=== PATIENT | male | born 2000 | race Asian ===

== ENCOUNTER 2019-10-23 12:24 | Emergency (ER) | payer OTHER ==
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
[2019-10-23 13:07] LABS: ABS Lymphocytes 1.4 10^3/ul (1.0-4.8); ABS Monocytes 0.4 10^3/ul (0-0.8); ABS Neutrophils 3.8 10^3/ul (1.5-7.7); Eosinophil % 0.5 %; Hematocrit 41 % (42-52); Hemoglobin 14.1 g/dL (14.0-18.0); Lymphocyte % 24.7 %; Mean Corpuscular HGB Conc 35 g/dL (31-36); Mean Corpuscular Hemoglobin 33 pg (27-31); Mean Corpuscular Volume 93 fL (80-94); Mean Platelet Volume 7.5 fL (7.4-10.4); Nucleated Red Blood Cells % 0.1; Platelet Count 258 10^3/uL (150-450); Red Blood Count 4.34 10^6 /uL (4.18-5.48); Red Cell Distribution Width 13 % (10-15); White Blood Count 5.7 10^3/uL (3.5-10.8)
[2019-10-23 13:20] LABS: Urine Appearance Clear; Urine Bilirubin Negative (Negative); Urine Blood Negative (Negative); Urine Color Straw; Urine Glucose Negative (Negative); Urine Ketones Negative (Negative); Urine Nitrite Negative (Negative); Urine Protein Negative (Negative); Urine Specific Gravity 1.005 (1.010-1.030); Urine Urobilinogen Negative (Negative)
[2019-10-23 13:22] LABS: ALT 29 U/L (7-52); AST 22 U/L (13-39); Albumin 4.6 g/dL (3.2-5.2); Albumin/Globulin Ratio 1.8 (1-3); Alkaline Phosphatase 69 U/L (34-104); Anion Gap 6 mmol/L (2-11); Blood Urea Nitrogen 15 mg/dL (6-24); CO2 Carbon Dioxide 30 mmol/L (22-32); Calcium 9.6 mg/dL (8.6-10.3); Chloride 104 mmol/L (101-111); EGFR African American 160.7 (>60); EGFR Non-African American 132.8 (>60); Globulin 2.6 g/dL (2-4); Glucose 85 mg/dL (70-100); Potassium 3.8 mmol/L (3.5-5.0); Sodium 140 mmol/L (135-145); Total Protein 7.2 g/dL (6.4-8.9)
[2019-10-23 13:26] LABS: Urine Benzodiazepine Screen None Detected (None Detect); Urine Opiates Screen None Detected (None Detect)
[2019-10-23 14:20] LABS: Acetaminophen < 15 mcg/mL; Alcohol < 10 mg/dL (<10); Salicylate < 2.50 mg/dL (<30)
[2019-10-23 14:34] LABS: TSH (Thyroid Stimulating Horm) 2.47 mcIU/mL (0.34-5.60)
[2019-10-23 17:27] VITALS: BP 124/72
== END 2019-10-23 17:26 | disposition home or self-care (01) ==
LOC: ED 12:24
DX: F42.9 Obsessive-compulsive disorder, unspecified (principal); F84.0 Autistic disorder; F22 Delusional disorders
CPT/HCPCS: 36415; 80053; 80307; 80320; 80329; 81003; 84443; 85025; 99285; G0480

== ENCOUNTER 2019-11-13 10:54 | Emergency (ER) | payer OTHER ==
--- NOTE | 2019-11-13 11:41 | UC ---
UC General HPI - HPI Summary HPI Summary: 19 yo wei presents accompanied by mom, c/o last couple days penile itching. Unsure if dysuria. No hematuria. No fever / chills. No GI upset. Has an appt with a new PCP end of this month, no current pcp. Reports several other issues, including itchy feet, feels like at night he has had bug bites on his feet. Some general body discomfort reported over a long time, but not acute. No fever / chills. - History of Current Complaint Stated Complaint: PERSONAL Time Seen by Provider: 11/13/19 11:38 Hx Obtained From: Patient, Family/Foreign Student Adviser Teacher - Allergy/Home Medications Allergies/Adverse Reactions: Allergies Allergy/AdvReac Type Severity Reaction Status Date / Time No Known Allergies Allergy Verified 11/13/19 12:20 PMH/Surg Hx/FS Hx/Imm Hx Previously Healthy: Yes - followed for MH issues - Family History Known Family History: Negative: Cardiac Disease, Hypertension, Diabetes - Social History Alcohol Use: None Substance Use Type: None Smoking Status (MU): Never Smoked Tobacco Review of Systems All Other Systems Reviewed And Are Negative: Yes Constitutional: Positive: Negative Skin: Positive: Negative Eyes: Positive: Negative ENT: Positive: Negative Respiratory: Positive: Negative Cardiovascular: Positive: Negative Gastrointestinal: Positive: Negative Genitourinary: Positive: Other - see hpi Motor: Positive: Negative Neurovascular: Positive: Negative Musculoskeletal: Positive: Negative Neurological: Positive: Negative Psychological: Positive: Negative Is Patient Immunocompromised?: No Physical Exam Triage Information Reviewed: Yes Appearance: Well-Nourished - sitting up, conversing easily, nad Vital Signs Reviewed: Yes Eye Exam: Normal - nad ENT Exam: Normal - mmm nad Neck exam: Normal Neck: Positive: Supple Respiratory Exam: Normal - RR normal, no dyspnea, no tachypnea no distress Cardiovascular Exam: Normal Cardiovascular: Positive: Brisk Capillary Refill Abdominal Exam: Normal - no cvat Abdomen Description: Positive: Nontender Musculoskeletal Exam: Normal - nad, although + subj reports some local upper back discomfort, reproduce by pressure between spine and scapula Neurological Exam: Normal - grossly nad Psychological: Positive: Normal Response To Family - no acute isssues per mom in accompaniment Skin Exam: Other - nondiaphoretic Distal penis excoriated, a little dry flaky skin, mild red. No purulence. Uncircumcised. Not constricted. No adenopathy. No testicular pain / swelling / tenderness. 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 Feet warm, not swollen. Course/Dx - Course Course Of Treatment: Pt has several questions, about primary care issues. He has an upcoming appt with PCP. Meanwhile, questions as posed answered to the best of my ability. Urine dip nad. Cx sent. Will start topical antifungal. D/w pt and mom. Should seek medical attention for worse or new issues. Will start otc hydrocortisone as needed to feet, avoid getting hydrocortisone on genitalia. Other - as Mr. Regan was being brought into the exam room by RN, RN noted that he walked over to the hospital computer and tried to look at it - which fortunatly at that time did not have open patient information. He was stopped immediately by RN and mom, with pt. I reviewed pmh, and note that this occurance happened also last month. Today's difference however, being that he did not have an outburst or otherwise. No c/o si/hi reported. He remained calm, cooperative, and otherwise appropriately respectful throughout his ccc encounter. - Diagnoses Provider Diagnosis: Fungal dermatitis, Bug bite Discharge ED - Discharge Plan Condition: Stable Disposition: HOME Prescriptions: Econazole 1% CREAM (NF) [Econazole 1 % CREAM (NF)] 1 applic TOPICAL BID 14 Days #1 tube Patient Education Materials: Insect Bite or Sting (ED), Skin Yeast Infection ( ED) Referrals: Krish Loja MD [Primary Care Provider] - Additional Instructions: Follow up with your primary care physician as scheduled this month. Urine culture has been sent. You will be notified if you need an antibiotic. Please seek medical attention for worse or new problems. Hydrate. You may use thin layer over the counter hydrocortisone (0.5% or 1%) up to twice daily as needed for itchy foot bug bites. Max 7 days. - Billing Disposition and Condition Condition: STABLE Disposition: Home
[2019-11-13 12:52] VITALS: BP 135/74
== END 2019-11-13 12:40 | disposition home or self-care (01) ==
LOC: UCEAST 10:54
DX: S90.869A Insect bite (nonvenomous), unspecified foot, initial encounter (principal); B36.9 Superficial mycosis, unspecified; W57.XXXA Bitten or stung by nonvenomous insect and other nonvenomous arthropods, initial encounter; Y92.9 Unspecified place or not applicable
CPT/HCPCS: 81003; 87086; 99202; G0463

== ENCOUNTER 2019-12-01 16:12 | Emergency (ER) | payer OTHER ==
--- NOTE | 2019-12-01 16:24 | UC ---
Ear Complaint HPI - HPI Summary HPI Summary: 19 yo male presents, accompanied by mother, with LEFT ear pain. Mom tells me that over the last 2-3 days pt has been complaining of intermittent left ear pain and itching. Pt does pick his ears often and uses q-tips often. Some decreased hearing from that ear. Denies fever, sinus symptoms, sore throat, cough, trauma. - History of Current Complaint Chief Complaint: UCEar Stated Complaint: EAR PAIN Time Seen by Provider: 12/01/19 16:23 Hx Obtained From: Patient, Family/School Inspector Onset/Duration: Sudden Onset Severity Initially: Moderate Severity Currently: Moderate Pain Intensity: 10 Pain Scale Used: 0-10 Numeric - Allergies/Home Medications Allergies/Adverse Reactions: Allergies Allergy/AdvReac Type Severity Reaction Status Date / Time No Known Allergies Allergy Verified 12/01/19 16:23 Home Medications: Home Medications Clotrimazole 1% CREAM* [Clotrimazole 1%*] 1 applic TOPICAL BID #1 tube 12/01/19 [Rx] PMH/Surg Hx/FS Hx/Imm Hx - Additional Past Medical History Additional PMH: Defiant behavior - Surgical History Surgical History: None - Family History Known Family History: Negative: Cardiac Disease, Hypertension, Diabetes - Social History Lives: With Family Alcohol Use: None Substance Use Type: None Smoking Status (MU): Never Smoked Tobacco Review of Systems All Other Systems Reviewed And Are Negative: No Constitutional: Positive: Negative Skin: Positive: Negative Eyes: Positive: Negative ENT: Positive: Ear Ache Respiratory: Positive: Negative Cardiovascular: Positive: Negative Gastrointestinal: Positive: Negative Physical Exam - Summary Physical Exam Summary: GENERAL: NAD. WDWN. No pain distress. SKIN: No rashes, sores, lesions, or open wounds. HEENT: Head: AT/NC Eyes: EOM intact. Conjunctiva clear without inflammation or discharge. Ears: Hearing grossly normal. LEFT TM occluded by brown waxy cerumen. S/p disimpaction TMs intact, no bulging, erythema, or edema. Nose: Nasal mucosa pink and moist. NTTP maxillary and frontal sinus. Throat: Posterior oropharynx without exudates, erythema, or tonsillar enlargement. Uvula midline. NECK: Supple. Nontender. No lymphadenopathy. CHEST: CTAB. No r/r/w. No accessory muscle use. Breathing comfortably and in no distress. CV: RRR. Pulses intact. Cap refill <2seconds NEURO: Alert. PSYCH: Age appropriate behavior. Triage Information Reviewed: Yes Vital Signs: Initial Vital Signs Temp 98.1 F 12/01/19 16:18 Pulse 91 12/01/19 16:18 Resp 16 12/01/19 16:18 Pulse Ox 100 12/01/19 16:18 Vital Signs Reviewed: Yes Ear Complaint Course/Dx - Course Course Of Treatment: Ceurmen impaction on left -- successful irrigation by nursing and pt reports feeling much better. Mom tells me that about 2 weeks ago pt was seen for a fungal infection to his penis and is asking for clotrimazole cream as the cream prescribed that day was not covered by insurance and they have not picked it up due to cost. - Differential Dx/Diagnosis Provider Diagnosis: Cerumen impaction Discharge ED - Sign-Out/Discharge Documenting (check all that apply): Patient Departure All imaging exams completed and their final reports reviewed: No Studies - Discharge Plan Condition: Stable Disposition: HOME Prescriptions: Clotrimazole 1% CREAM* [Clotrimazole 1%*] 1 applic TOPICAL BID #1 tube Patient Education Materials: Cerumen Impaction (ED) Referrals: Krish Loja MD [Primary Care Provider] - Additional Instructions: If you develop a fever, shortness of breath, chest pain, new or worsening symptoms - please call your PCP or go to the ED immediately. Use the cream as directed. Your urine culture from your previous visit was normal - Billing Disposition and Condition Condition: STABLE Disposition: Home
== END 2019-12-01 17:08 | disposition home or self-care (01) ==
LOC: UCEAST 16:12
DX: H61.22 Impacted cerumen, left ear (principal)
CPT/HCPCS: 99213; G0463